=== PATIENT | female | born 1975 | race African-American/Black ===

== ENCOUNTER 2021-10-15 15:55 | Emergency (ER) | payer MEDICARE, OTHER ==
[~2021-10-15] VITALS: Ht 165.1 cm; Wt 135.0 kg
[2021-10-15] MEDS ORDERED: KETOROLAC 60MG/2ML VIAL IM STA (16:05)
[2021-10-15] MEDS ORDERED: IBUP-2029 PO (17:45)
[2021-10-15 18:18] VITALS: BP 127/75
== END 2021-10-15 18:19 | disposition home or self-care (01) ==
LOC: ER 15:55
DX: S80.02XA Contusion of left knee, initial encounter (principal); X58.XXXA Exposure to other specified factors, initial encounter; Y93.89 Activity, other specified; Y92.89 Other specified places as the place of occurrence of the external cause; Y99.8 Other external cause status; Z98.890 Other specified postprocedural states; Z90.710 Acquired absence of both cervix and uterus
CPT/HCPCS: 73562; 81025; 96372; 99283; J1885

== ENCOUNTER 2022-05-07 11:36 | Emergency (ER) | payer MEDICARE, MEDICAID ==
[~2022-05-07] VITALS: Ht 160 cm; Wt 88.0 kg
[~2022-05-07 11:36] MED LIST: IBUP-2029 PO
[2022-05-07 11:45] VITALS: BP 148/90
[2022-05-07] MEDS ORDERED: IPRATROPIUM BROMIDE (0.02%) 0.5MG/2.5ML NEB HHN STA (12:45)
[2022-05-07] MEDS ORDERED: ALBUTEROL (0.083%) 2.5MG/3ML NEB HHN STA (12:45)
[2022-05-07] MEDS ORDERED: P50 MT (13:01)
== END 2022-05-07 15:18 | disposition home or self-care (01) ==
LOC: ER 11:36
DX: J45.909 Unspecified asthma, uncomplicated (principal); R05.9 Cough, unspecified; I10 Essential (primary) hypertension
CPT/HCPCS: 99283